=== PATIENT | male | born 1950 | race Caucasian/White ===

== ENCOUNTER → 2019-12-06 10:40 | Outpatient (CLI) | payer BC, SELFPAY ==
--- NOTE | 2019-12-08 08:27 | PC.NURSE ---
0810-notified pt of negative COVID 19 results
[2019-12-28 16:05] LABS: Covid-19 Nasal PCR Sendout Lex NOT DETECTED
== END ==
PROVIDERS: PCP Family Medicine; Visit Provider Internal Medicine Adolescent Medicine
DX: Z03.818 Encounter for observation for suspected exposure to other biological agents ruled out (principal)
CPT/HCPCS: U0004

== ENCOUNTER → 2020-02-25 13:46 | Outpatient (CLI) | payer BC, SELFPAY ==
[2020-02-25 18:53] LABS: Coronavirus 19 IgG Antibody Positive (Negative); Coronavirus 19 IgM Antibody Negative (Negative)
== END ==
PROVIDERS: Visit Provider Internal Medicine Gastroenterology
DX: Z01.818 Encounter for other preprocedural examination (principal); Z12.11 Encounter for screening for malignant neoplasm of colon
CPT/HCPCS: 36415; 86328

== ENCOUNTER 2020-02-28 13:03 | Day surgery (SDC) | payer BC, SELFPAY ==
[2020-02-23 13:51] VITALS: BMI 29.6
[2020-02-28] VITALS (7 sets, daily range): BP systolic 96–145; BP diastolic 66–80; PULSE 57–81; RESP 16–18; TEMP 36.5–36.9; O2SAT 92–97
--- NOTE | 2020-02-28 14:20 | [facility].PROC ---
[facility] Procedure Note Procedure Note:: Colonoscopy Procedure Report: Colonoscopy with cold snare polypectomy Endoscopist: Luisito Gongora II, MD Referring physician: Debra REYES Date of Procedure: February 28, 2020 Equipment: Olympus 180 variable stiffness pediatric colonoscope Sedation: MAC sedation Indication: Mr. Singletary is a 69-year-old gentleman who is here for follow-up screening/surveillance colonoscopy secondary to a personal history of colon polyps. He had a colonoscopy 5 years ago at which time a couple of polyps were removed. He reports no abdominal pain, weight loss, change in his bowel habits or rectal bleeding. He reports no family history of colon cancer. Procedure: Prior to the procedure, a history and physical exam was performed, and patient's medications and allergies were reviewed. The risks, benefits and alternatives of the sedation and procedure were discussed with the patient. All questions were answered and informed consent was obtained. The patient was brought to the procedure room. Patient identification and proposed procedure were verified by the physician and the nurse. The patient was placed in a left lateral decubitus position and the scope was passed under direct vision. Throughout the procedure, the patient's blood pressure, pulse, and oxygen saturations were monitored continuously. The colonoscopy was accomplished without difficulty. The patient tolerated the procedure well. Findings: On digital rectal examination there was normal rectal tone. There were no external hemorrhoids. The prostate was 2+, smooth, soft, symmetric without nodules. The colonoscope was introduced through the anal canal to the rectum and advanced to the cecum. The ileocecal valve and appendiceal orifice were identified. The scope was advanced a short distance into the ileum which appeared grossly normal. The scope was then withdrawn into the colon. There were 4 colon polyps (ascending x1 (4 mm), transverse x2 (3 and 7 mm) and descending x1 (5 mm)) which were all removed via cold snare polypectomy. There were scattered diverticuli throughout the descending and sigmoid colon (LEFT colon). The rectum itself was normal. Upon retroflexion within the rectum there were grade 1-2 internal hemorrhoids. The preparation was excellent throughout with [place] Preparation Score of 9. The cecal time was 12 minutes. Impression: 1. Diminutive colonic polyps x4 2. Left-sided diverticulosis 3. Grade 1-2 internal hemorrhoids Plan: I will follow up the polyp pathology and recommend repeat colonoscopy again in 5 years based upon the polyp histology. I would encourage bulk fiber supplementation on a long-term daily maintenance basis.
== END 2020-02-28 15:06 | disposition home or self-care (01) ==
LOC: OUTP 13:06
PROVIDERS: PCP Family Medicine; Visit Provider Internal Medicine Gastroenterology
PROC: 0DJD8ZZ Inspection of Lower Intestinal Tract, Via Natural or Artificial Opening Endoscopic (ICD-10-PCS; CPT 45378; principal; 2020-02-28 13:30)
DX: Z86.010 Personal history of colon polyps (principal); Z12.11 Encounter for screening for malignant neoplasm of colon; K63.5 Polyp of colon; K57.30 Diverticulosis of large intestine without perforation or abscess without bleeding; K64.0 First degree hemorrhoids; I10 Essential (primary) hypertension; E78.5 Hyperlipidemia, unspecified; E03.9 Hypothyroidism, unspecified; N40.0 Benign prostatic hyperplasia without lower urinary tract symptoms; Z86.69 Personal history of other diseases of the nervous system and sense organs; Z79.899 Other long term (current) drug therapy
CPT/HCPCS: 45385

== ENCOUNTER → 2021-10-31 13:21 | Outpatient (CLI) | payer MEDICARE, SELFPAY ==
--- NOTE | 2021-10-31 13:25 | US_ITS ---
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 Findings: The testicles are normal in size. No intratesticular mass identified. Arterial flow is identified bilaterally. There are small bilateral varicoceles. There are small bilateral hydroceles. IMPRESSION: No intratesticular mass or evidence of torsion. Small bilateral varicoceles and small bilateral hydroceles. Reviewed, Interpreted and Dictated by Danny Jeronimo III, MD Transcribed by Fidencio Hartley Authenticated by Danny Jeronimo III, MD on 10/31/2021 03:08:29 PM [facility]
== END ==
PROVIDERS: PCP Nurse Practitioner Family; Visit Provider Nurse Practitioner Family
DX: N50.89 Other specified disorders of the male genital organs (principal)
CPT/HCPCS: 76870